=== PATIENT | male | born 1985 | race Caucasian/White ===

== ENCOUNTER 2016-06-05 06:51 | Inpatient (IN) | payer OTHER ==
--- NOTE | ~2016-06-05 | PN ---
Unit #: [id number] #: [id number] Patient: LITA DUNLAP JR [id number] [facility] [address] [place] [address] [id number] I MR#: [id number] NAME: LITA DUNLAP JR ROOM: P184 Age: 30 Sex: M Admission Date: 06/05/2016 : 1985 Attending Physician: Ernie Garcia M.D. Admitting Physician: Ernie Garcia M.D. Primary Care Physician: Indigo GomezCE PROGRESS NOTES DATE OF SERVICE: 06/08/2016 SUBJECTIVE Mr. Dunlap is a 30-year-old white male who was seen today and chart was reviewed, and case was discussed with the staff. He has been anxious, withdrawn, and rather seclusive to himself, and has been complaining of persistent depressive symptoms. Meanwhile, he has been taking medications and tolerating them fairly well with no reported side effects. MENTAL STATUS EXAMINATION Young white male who was casually dressed with fair personal hygiene, appears to be in no acute distress or discomfort. He was awake and alert on interaction with intact orientation. His mood was anxious with a congruent affect. His speech was slow and goal directed. He denies any suicidal or homicidal ideations, and also denies any auditory or visual hallucinations. His insight and judgment remain slightly impaired. TREATMENT PLAN 1. We will continue him on his current patient and treatment protocol. We will monitor his response to the medications and make further adjustments as needed. 2. We will continue to follow up. Dictated by... Indigo Tucker/stephen TD: 06/09/2016 01:49 JOB #: [id number] [facility] PROGRESS NOTES X Ernie Garcia MD PROGRESS NOTE
--- NOTE | ~2016-06-05 | PN ---
Unit #: [id number] #: [id number] Patient: LITA DUNLAP JR [id number] [facility] [address] [place] [address] [id number] I MR#: [id number] NAME: LITA DUNLAP JR ROOM: P184 Age: 30 Sex: M Admission Date: 06/05/2016 : 1985 Attending Physician: Ernie Garcia M.D. Admitting Physician: Ernie Garcia M.D. Primary Care Physician: Indigo Gomez PROGRESS NOTES DATE 06/07/2016 DISCUSSION Mr. Dunlap is a 30-year-old, white male who was seen today and chart was reviewed and case was discussed with the staff. He has been anxious, withdrawn though has not shown any agitation, irritability or behavioral problems and has been cooperative with treatment recommendations and has been taking medications and tolerating them fairly well with no reported side effects. MENTAL STATUS EXAM Young white male who was casually dressed with fair personal hygiene, appears to be in no acute distress or discomfort. He was awake and alert on interaction with intact orientation. His mood was anxious with congruent affect. His speech was slow and goal directed. He denies any suicidal or homicidal ideation. Also, denies any auditory or visual hallucinations. His insight and judgement remains slightly impaired. TREATMENT PLAN 1. We will continue him on his current medications and treatment protocol. We will monitor his response to the medication and make further adjustments as needed. 2. We will continue to follow up. Dictated by... Indigo Tucker/rajesh TD: 06/09/2016 02:50 JOB #: [id number] Unit #: [id number] #: [id number] Patient: LITA DUNLAP JR [facility] PROGRESS NOTES X Ernie Garcia MD PROGRESS NOTE
--- NOTE | ~2016-06-05 | DS ---
Unit #: [id number] #: [id number] [facility]: [facility] [id number] [facility] [address] [place] [address] [id number] I MR#: [id number] NAME: LITA DUNLAP JR ROOM: P186 Age: 30 Sex: M Admission Date: 06/05/2016 : 1985 Discharge Date: 06/11/2016 Attending Physician: Ernie Garcia M.D. Primary Care Physician: Dale Randolph M.D. DISCHARGE SUMMARY IDENTIFYING DATA Mr. Dunlap is a 30-year-old white male who is a resident of [place], [place] and is known to us from previous encounter, was self-referred to the hospital. DISCHARGE DIAGNOSES Psychiatric: Major depressive disorder, recurrent, moderate, without psychotic features; cocaine dependence, moderate; opioid dependence, moderate. Medical: None. Stressors: Moderate psychosocial stressors. HISTORY OF PRESENT ILLNESS Please see initial psychiatric evaluation for details. PAST PSYCHIATRIC HISTORY Please see initial psychiatric evaluation for details. PAST MEDICAL HISTORY Please see initial psychiatric evaluation for details. HOSPITAL COURSE The patient was admitted to the adult psychiatric and chemical dependency unit at [facility] wendy Sheffield and was oriented to the hospital environment. Routine p.r.n. medications were initiated, and he was started back on his home medications and detox protocol was initiated and he was closely monitored. He was taking the medications regularly and was tolerating them fairly well and was able to show a decent therapeutic response with improvement in depression and anxiety, and was willing to continue treatment on an outpatient basis and as such, it was decided that he will be discharged home and will continue treatment on an outpatient basis. DISCHARGE MEDICATIONS Wellbutrin XL 100 mg in the morning for depression, Celexa 20 mg in the morning for depression, and Neurontin 300 mg at bedtime for anxiety. DISCHARGE CONDITION Stable. PROGNOSIS Fair. Dictated by... Ernie Garcia M.D. Unit #: [id number] #: [id number] Patient: LITA DUNLAP JR IAA/modl TD: 06/11/2016 06:52 JOB #: [id number] DISCHARGE SUMMARY X Ernie Garcia MD DISCHARGE SUMMARY
--- NOTE | ~2016-06-05 | PN ---
Unit #: [id number] #: [id number] Patient: LITA DUNLAP JR [id number] [facility] [address] [place] [address] [id number] I MR#: [id number] NAME: LITA DUNLAP JR ROOM: P186 Age: 30 Sex: M Admission Date: 06/05/2016 : 1985 Attending Physician: Ernie Garcia M.D. Admitting Physician: Ernie Garcia M.D. Primary Care Physician: Indigo Gomez PROGRESS NOTES DATE OF SERVICE 06/10/2016 DISCUSSION Mr. Dunlap is a 30-year-old white male who was seen today. Chart was reviewed and case was discussed with the staff. He has been anxious, withdrawn, and rather seclusive to himself. Meanwhile, he has been cooperative with treatment recommendations and has been taking the medications and tolerating them fairly well with no reported side effects. MENTAL STATUS EXAMINATION Young white male who is casually dressed with fair personal hygiene, appears to be in no acute distress or discomfort. The patient was awake and alert on interaction with intact orientation. His mood is anxious with congruent affect. His speech is slow and goal-directed. He denies any suicidal or homicidal ideations and also denies any auditory or visual hallucinations. His insight and judgment remain slightly impaired. TREATMENT PLAN 1. We will continue him on his current medications and treatment protocol. We will monitor his response to the medications and make further adjustments as needed. 2. We will continue to follow up. Dictated by... Indigo Tucker/tino TD: 06/11/2016 08:23 JOB #: [id number] [facility] PROGRESS NOTES X Ernie Garcia MD PROGRESS NOTE
--- NOTE | ~2016-06-05 | PA ---
Unit #: [id number] #: [id number] Patient: [facility]ITA [facility]UNLAP JR [id number] [facility] [address] [id number] I MR#: [id number] NAME: LITA DUNLAP JR ROOM: P184 Age: 30 Sex: M Admission Date: 06/05/2016 : 1985 Date of Assessment: Attending Physician: Ernie Garcia M.D. Admitting Physician: Ernie Garcia M.D. Primary Care Physician: Dale Randolph M.D. PSYCHIATRIC ASSESSMENT DATE OF SERVICE 06/05/2016. IDENTIFYING DATA Mr. Lemus is a 30-year-old white male who is a resident of [place], [place] and he is known to us from previous encounter, was self-referred to the hospital. CHIEF COMPLAINT "I feel depressed to the point that I don't care if I live or ." HISTORY OF PRESENT ILLNESS Mr. Lemus is a 30-year-old white male with dual diagnosis of mood disorder and substance abuse, who was self-referred to the hospital stating that he does not feel that he can think straight and he feels depressed to the point that he does not care about living or dying and believed that if he left the hospital, he would hurt himself. He has not found any work and his health has been bad and he reports not getting along with life has been stressful and today, he relapsed on cocaine and now reports increasing depression, anxiety, irritability, restlessness, feelings of hopelessness and helplessness, and suicidal ideation with intent and plan. SUBSTANCE ABUSE HISTORY The patient reports extensive history of substance abuse and dependence including alcohol, cannabis, cocaine, opioids, and currently opioids has been his drug of choice and reports that he has been using several pills a day and then he relapse on cocaine yesterday. PAST PSYCHIATRIC HISTORY The patient has had history of multiple inpatient psychiatric hospitalizations including being at [facility] and other facilities, and has been diagnosed and treated for mood disorder. Review of the medical records indicate that he is supposed to be on Wellbutrin, and Neurontin, and trazodone, but has been noncompliant with medication and as such, has not been able to show a therapeutic response. PAST MEDICAL HISTORY Lower back pain. ALLERGIES No known medication allergies. Unit #: [id number] #: [id number] Patient: LITA DUNLAP JR PERSONAL AND SOCIAL HISTORY A 30-year-old white male who reports that he is and lives at home with his and is unemployed, and has poor social support system. MENTAL STATUS EXAMINATION Young white male who was casually dressed with fair personal hygiene, appears to be in no acute distress or discomfort. He was awake and alert on interaction with intact orientation to time, place, and person. His mood was anxious and depressed with a congruent affect. His speech was slow and goal directed. He reports having suicidal ideations, but denies any homicidal ideations, and also denies any auditory or visual hallucinations. His insight and judgment remain significantly impaired. DIAGNOSTIC IMPRESSION Psychiatric: Major depressive disorder, recurrent, moderate, without psychotic features; cocaine dependence, moderate; opioid dependence, moderate. Medical: None. Medical: Lower back pain. Stressors: Moderate psychosocial stressors. TREATMENT PLAN 1. The patient has presented with history of substance abuse and mood disorder, and has been decompensating, and will need inpatient hospitalization for safety and stabilization. We will start him back on his home medications. We will adjust the medications and monitor response. 2. Supportive therapy was provided to the patient. 3. Safe, structured, and nourishing environment will be provided. ESTIMATED LENGTH OF STAY 4 to 5 days. ABILITY TO HELP SELF Limited. WILLINGNESS TO HELP SELF The patient appears to be willing to help self. STRENGTHS 1. Communicative. 2. Cooperative. PROBLEMS 1. Chronic dysphoric symptoms. 2. Poor social support system. DISCHARGE CRITERIA This will be contingent upon the patient's ability to show resolution of his depression and anxiety and his ability to stay safe and sober, particularly after discharge from the hospital. Dictated by... Indigo Tucker/stephen TD: 06/06/2016 13:19 Unit #: [id number] #: [id number] Patient: LITA DUNLAP JR JOB #: [id number] PSYCHIATRIC ASSESSMENT X Ernie Garcia MD PSYCHIATRIC ASSESSMENT
--- NOTE | ~2016-06-05 | PN ---
Unit #: [id number] #: [id number] Patient: LITA DUNLAP JR [id number] [facility] [address] [place] [address] [id number] I MR#: [id number] NAME: LITA DUNLAP JR ROOM: P184 Age: 30 Sex: M Admission Date: 06/05/2016 : 1985 Attending Physician: Ernie Garcia M.D. Admitting Physician: Ernie Garcia M.D. Primary Care Physician: Dale Randolph M.D. [facility] PROGRESS NOTES DATE June 06, 2016 DISCUSSION Mr. Dunlap is a 30-year-old white male, who was seen today and chart was reviewed and the case was discussed with the staff. He has been anxious, withdrawn, agitated and irritable, and rather seclusive to himself. Meanwhile, he has been cooperative with the treatment recommendations and he has been taking the medications and tolerating them fairly well. MENTAL STATUS EXAMINATION Young white male, who was casually dressed with fair personal hygiene and appears to be in no acute distress or discomfort. He was awake and alert with impaired attention and concentration. His mood is anxious with a congruent affect. His speech is slow and goal-directed. He denies any suicidal or homicidal ideations. His insight and judgment remain slightly impaired. TREATMENT PLAN 1. We will continue him on his current medications and treatment protocol, and will monitor his response to the medications, and make further adjustments as needed. 2. We will continue to followup. Dictated by... Indigo Tucker/tasneem TD: 06/08/2016 10:34 JOB #: [id number] Unit #: [id number] #: [id number] Patient: LITA DUNLAP JR [facility] PROGRESS NOTES X Ernie Garcia MD PROGRESS NOTE
--- NOTE | ~2016-06-05 | HP ---
Unit #: [id number] #: [id number] Patient: LITA DUNLAP JR [id number] [place] [address] [id number] I MR#: [id number] NAME: LITA DUNLAP JR ROOM: P184 Age: 30 Sex: M Admission Date: 06/05/2016 : 1985 Attending Physician: Ernie Garcia M.D. Admitting Physician: Ernie Garcia M.D. Primary Care Physician: Dale Randolph M.D. HISTORY AND PHYSICAL HISTORY OF PRESENT ILLNESS Lita is a 30 year old admitted to [facility] because of his continued polysubstance abuse. PAST MEDICAL HISTORY 1. Long history of poly-illicit substance abuse to include crack cocaine and pain pills. 2. History of migraines. PAST SURGICAL HISTORY Nothing reported. ALLERGIES No known drug allergies. SOCIAL HISTORY Smokes 1 pack per day. Drinks alcohol on occasion. Admits to illicit drug use to include cocaine and abusing pain pills. FAMILY HISTORY Medically noncontributory. REVIEW OF SYSTEMS CONSTITUTIONAL: No fever or chills. HEENT: Denies any sore throat, ear pain or runny nose. CARDIOVASCULAR: Denies chest pain, irregular heart rhythm or palpitations. CHEST: Denies shortness of breath or cough. No hemoptysis. GASTROINTESTINAL: Denies nausea, vomiting, diarrhea or chronic constipation. ENDOCRINE: Denies history of increased thirst or urination. No recent significant weight loss or gain. GENITOURINARY: Denies dysuria, frequency, or hematuria. SKIN: Denies any rashes. HEMATOLOGIC: Denies history of increased bleeding or bruising. MUSCULOSKELETAL: Denies any hot, swollen joints. No generalized muscle pain. NEUROLOGIC: Denies problems with vision or speech. No frequent, severe headaches. No numbness, tingling or weakness in any extremities. Denies loss of bladder or bowel control. CURRENT MEDICATIONS 1. Detox protocol. 2. Neurontin 300 mg t.i.d. Unit #: [id number] #: [id number] Patient: LITA DUNLAP JR 3. Flexeril 10 mg t.i.d. 4. Wellbutrin SR 100 mg q.a.m. PHYSICAL EXAMINATION GENERAL: Alert, well-nourished, in no apparent distress. VITAL SIGNS: Blood pressure 124/58, heart rate 80, respirations 16, temperature 98.6. WEIGHT: 152. HEIGHT: 5 feet 9 inches. SKIN: Warm and dry without rash or lesion. HEENT: Normocephalic. TMs not viewed. Oral and nasal passages clear. Conjunctivae clear. PERRLA. EOMs intact. NECK: Supple without lymphadenopathy or thyromegaly. HEART: Regular rate and rhythm without murmur. LUNGS: Clear. ABDOMEN: Soft, nontender. : Not done. EXTREMITIES: No evidence of cyanosis, clubbing or edema. Moves all without focal deficit. NEUROLOGICAL: Grossly within normal limits. Cranial Nerves: II: Visual cook are intact. III, IV AND : Extraocular movements are intact. Pupils are equal, round and reactive to light. V: Facial sensation is grossly normal. VII: Facial movements and expression are normal. VIII: Auditory acuity grossly intact. IX, X: Uvula is midline. Phonation is normal. XI: Patient shrugs shoulders and turns head normally. XII: Tongue protrudes in the midline. Sensory and Motor Function: Sensory and motor sensation is grossly normal. Motor: moves all extremities well. Coordination: Gait is normal. Deep Tendon Reflexes: Intact. IMPRESSION Psychiatric admission. RECOMMENDATIONS PSYCHIATRIC: Per psychiatrist. MEDICAL: See no contraindications to participate in facility's activities. MEDICAL PROGNOSIS Good. MEDICAL CONDITION Stable. Dictated by... Dalila Acosta P.A.-C. for Indigo Hall/marisela TD: 06/05/2016 22:22 JOB #: [id number] Unit #: [id number] #: [id number] Patient: LITA DUNLAP JR HISTORY AND PHYSICAL X Dalila Acosta X HISTORY AND PHYSICAL
--- NOTE | ~2016-06-05 | PN ---
Unit #: [id number] #: [id number] Patient: LITA DUNLAP JR [id number] [facility] [address] [place] [address] [id number] I MR#: [id number] NAME: LITA DUNLAP JR ROOM: P186 Age: 30 Sex: M Admission Date: 06/05/2016 : 1985 Attending Physician: Ernie Garcia M.D. Admitting Physician: Ernie Garcia M.D. Primary Care Physician: Dale Randolph M.D. [facility] PROGRESS NOTES DATE OF SERVICE: 06/09/2016 SUBJECTIVE Mr. Dunlap is a 30-year-old white male who was seen today and chart was reviewed, and case was discussed with the staff. He has been anxious, withdrawn, and rather seclusive to himself. Meanwhile, he has been cooperative with treatment recommendations and has been taking medications and tolerating them fairly well with no reported side effects. MENTAL STATUS EXAMINATION Young white male, who was casually dressed with fair personal hygiene, appears to be in no acute distress or discomfort. He was awake and alert on interaction with intact orientation. His mood was anxious with congruent affect. He denies any suicidal or homicidal ideations, and also denies any auditory or visual hallucinations. His insight and judgment remain slightly impaired. TREATMENT PLAN 1. We will continue on his current medications and treatment protocol. We will monitor his response to the medications and make further adjustments as needed. 2. We will continue to follow up. Dictated by... Indigo Tucker/stephen TD: 06/10/2016 00:31 JOB #: [id number] [facility] PROGRESS NOTES X Ernie Garcia MD PROGRESS NOTE
[~2016-06-05 06:51] MED LIST: ATARAX PO; CLARITIN10 M3 PO; CLEOCIN HCL300 M1 PO; CORTISONE14 GM TP; NO MEDICATIONS; PREDNISONE PO
[2016-06-06 10:01] LABS: BASOPHIL# 0.1 X10e3 (0-0.3); BASOPHIL% 0.8 % (0-2.5); EOSINOPHIL# 0.1 X10e3 (0-0.7); EOSINOPHIL% 1.5 % (0.0-7.0); HEMATOCRIT 38.8 % (38.0-50.0); HEMOGLOBIN 13.1 gm/dL (13.0-16.0); LYMPHOCYTE# 2.7 X10e3 (1.0-3.5); LYMPHOCYTE% 38.6 % (17.0-45.0); MEAN CELL VOLUME 88.8 FL (83-96); MEAN CORPUSCULAR HGB CONC 33.8 g/dL (30-36); MONOCYTE# 0.5 X10e3 (0-1.0); NEUTROPHIL# 3.7 X10e3 (1.5-7.1); NEUTROPHIL% 52.1 % (40-75); PLATELET COUNT 269 X10e3 (140-420); RED BLOOD COUNT 4.37 X10e (3.90-5.60); RED CELL DISTRIBUTION WIDTH 12.8 % (11.0-15.5); WHITE BLOOD COUNT 7.1 X10e3 (4.0-10.5)
[2016-06-06 10:03] LABS: DIFF IND NO
[2016-06-06 11:06] LABS: THYROID STIMULATING HORMONE 0.64 uIU/ml (0.34-5.60)
[2016-06-06 11:10] LABS: ALBUMIN SERUM 3.6 g/dL (3.5-5.0); ALKALINE PHOSPHATASE 54 U/L (32-92); ALT (SGPT) 16 U/L (10-40); AST (SGOT) 19 U/L (10-42); BILIRUBIN,TOTAL 0.5 mg/dL (0.2-2.0); BLOOD UREA NITROGEN 15 mg/dL (9-23); BUN/CREATININE RATIO 16.66; CALCIUM SERUM 8.7 mg/dL (8.4-10.2); CARBON DIOXIDE 28 mmol/L (22-31); CHLORIDE 107 mmol/L (100-111); CREATININE SERUM 0.9 mg/dL (0.6-1.4); GLOM FILT RATE Estimated ABOVE60 mL/min (>60); GLUCOSE FASTING 86 mg/dL (70-110); POTASSIUM 4.1 mmol/L (3.5-5.1); SODIUM 139 mmol/L (135-145)
[2016-06-06 11:13] LABS: FREE THYROXIN (T4) 0.88 ng/dL (0.58-1.64)
[2016-06-09 09:58] LABS: URINE APPEARANCE CLEAR; URINE BILIRUBIN NEG (NEG); URINE BLOOD NEG (NEG); URINE COLOR YELLOW; URINE GLUCOSE NEG (NEG); URINE KETONE NEG (NEG); URINE LEUKOCYTE ESTERASE TRACE (NEG); URINE NITRATE NEG (NEG); URINE PROTEIN NEG (NEG); URINE SPECIFIC GRAVITY 1.007 (1.003-1.035); URINE UROBILINOGEN 0.2 MG/DL (NEG)
[2016-06-09 10:01] LABS: URBCS1 AUWI 0-2 /[HPF] (0-2); URINE BACTERIA AUWI NEG (NEGATIVE); URINE SQUAMOUS EPITHELIAL CELL NONE SEEN /[HPF]; UWBCS1 AUWI 0-2 (0-5)
[2016-06-09 10:16] LABS: AMPHETAMINE NEG (NEG); BARBITURATES NEG (NEG); BENZODIAZEPINES NEG (NEG); COCAINE NEG (NEG); MARIJUANA NEG (NEG); OPIATES NEG (NEG); TRICYCLIC ANTIDEPRESSANTS NEG (NEG); U METHADONE NEG (NEG)
== END 2016-06-11 09:35 | disposition home or self-care (01) | DRG 885 ==
LOC: P1E 06:51
PROVIDERS: Psychiatry & Neurology Psychiatry
PROC: HZ2ZZZZ Detoxification Services for Substance Abuse Treatment (ICD-10-PCS; principal; 2016-06-05)
PROC: 3E0234Z Introduction of Serum, Toxoid and Vaccine into Muscle, Percutaneous Approach (ICD-10-PCS; 2016-06-06)
DX: F33.1 Major depressive disorder, recurrent, moderate (principal); F11.20 Opioid dependence, uncomplicated; F14.20 Cocaine dependence, uncomplicated; M54.5 Low back pain; Z23 Encounter for immunization
CPT/HCPCS: 80053; 80307; 81003; 84439; 84443; 85025; 90688